=== PATIENT | male | born 1980 | race African-American/Black ===

== ENCOUNTER 2019-05-07 13:31 | Emergency (ER) | payer OTHER, SELFPAY ==
[2019-05-07 13:37] VITALS: BP 120/76; PULSE 63; RESP 19; TEMP 36.2; O2SAT 100
[2019-05-07] MEDS: DIAZEPAM 5 MG TABLET PO (14:08)
[2019-05-07] MEDS: KETOROLAC (*BKC) 60 MG/2 ML VIAL IM (14:08)
--- NOTE | 2019-05-07 14:35 | ED.BACK ---
HPI - Back Pain/Injury General Chief Complaint: Back Pain/Injury Stated Complaint: back pain Time Seen by Provider: 05/07/19 13:39 Source: patient Mode of arrival: ambulatory Limitations: no limitations History of Present Illness HPI Narrative: This is a 38 year old male that presents to the ER for low back pain x 2 days. No known injury or trauma. Reports sharp pain that is worse with movement and relieved with rest. He took an anti-inflammatory last night with little relief. Denies fever, abdominal pain, vomiting, dysuria, hematuria, saddle anesthesia, or bowel/bladder incontinence. Related Data Allergies Allergy/AdvReac Type Severity Reaction Status Date / Time Penicillins Allergy Rash Verified 05/07/19 14:07 Review of Systems Review of Systems: Narrative: CONSTITUTIONAL: Denies fever GASTROINTESTINAL: Denies abdominal pain, nausea, vomiting GENITOURINARY: Denies dysuria or hematuria. SKIN: Denies rash MUSCULOSKELETAL: Reports back pain, joint pain, and myalgia. NEUROLOGIC: Denies numbness, or weakness. All systems reviewed & are unremarkable except as noted in HPI and below PMFSH Social History Social History (Updated 05/07/19 @ 14:39 by Amna Angel PA-C) Smoking status: Current every day smoker Alcohol intake: never Substance use: never Gender identity (if verbalized by the patient): Male Exam Narrative: Exam Narrative: GENERAL: Well-appearing, well-nourished, and in no acute distress. HEAD: Normocephalic, atraumatic. EYES: EOMI. CHEST: Clear to auscultation. No respiratory distress. No wheezes rales or rhonchi HEART: Regular rate and rhythm. No murmur heard. Normal peripheral pulses. ABDOMEN: Soft, nontender, nondistended, normal active bowel sounds. BACK: No midline spinal tenderness EXTREMITIES: Normal range of motion. No edema. Strength equal in bilateral lower extremities (5/5). Normal patellar reflexes bilaterally SKIN: Warm, dry, no rash. NEURO: No focal deficits. Alert and oriented x3. Normal gait PSYCH: Normal mood and affect Course Vital Signs Vital signs: Vital Signs Temperature 97.2 F L 05/07/19 13:37 Pulse Rate 63 05/07/19 13:37 Respiratory Rate 19 05/07/19 13:37 Blood Pressure 120/76 03/13/20 13:37 Pulse Oximetry 100 03/13/20 13:37 Temperature 97.2 F L 05/07/19 13:37 Pulse Rate 63 05/07/19 13:37 Respiratory Rate 19 05/07/19 13:37 Blood Pressure 120/76 05/07/19 13:37 Pulse Oximetry 100 05/07/19 13:37 MDM - Back Pain/Injury MDM Narrative Medical decision making narrative: Patient presents to the ER for low back pain x2 days. Reports history of back problems for years. No recent injury or trauma. Patient is neurologically intact. He is afebrile and nontoxic-appearing. Patient given a dose of anti-inflammatory and muscle relaxer in the ED. He was instructed to rest, use ice/heat and take [id number] pain medications as well as muscle relaxer as needed for pain. He will be given follow-up with orthopedics and neurosurgery. Patient is stable and felt appropriate for further outpatient evaluation. He was given warnings to return to the ER Critical Care Time Critical Care Time Critical Care Time: No Discharge Plan Discharge Clinical Impression: Low back pain Qualifiers: Chronicity: chronic Back pain laterality: midline Sciatica presence: without sciatica Qualified Code(s): M54.5 - Low back pain Patient Disposition: Home, Self-Care Condition: Stable Instructions: Lumbar Radiculopathy (ED) Additional Instructions: Return to the ER if you experience fever, sudden onset weakness or numbness, numbness in your groin, bowel/bladder incontinence, or any other symptoms that are concerning to you Rest, use ice/heat, take anti-inflammatories (Aleve, Ibuprofen, Naproxen, etc) or Tylenol as needed for pain as well as muscle relaxer (Diazepam) as needed for pain. Muscle relaxers can make you drowsy, do not drive if you take this. Take
[2019-05-07 15:47] VITALS: BP 130/80; PULSE 80; RESP 18; TEMP 36.7; O2SAT 99
== END 2019-05-07 15:48 | disposition home or self-care (01) ==
PROVIDERS: Emergency Provider Emergency Medicine
DX: M54.5 Low back pain (principal); F17.200 Nicotine dependence, unspecified, uncomplicated
CPT/HCPCS: 96372; 99283; A9270; J1885

== ENCOUNTER 2019-10-15 16:24 | Emergency (ER) | payer OTHER, SELFPAY ==
[2019-10-15 16:32] VITALS: BP 119/78; PULSE 82; RESP 14; TEMP 36.5; O2SAT 100
--- NOTE | 2019-10-15 17:07 | ED.GENADULT ---
HPI - General Adult General Chief complaint: Dental/Oral Stated complaint: toothache/facial swelling Time Seen by Provider: 10/15/19 16:37 Source: patient Mode of arrival: ambulatory Limitations: no limitations History of Present Illness HPI narrative: Patient is a 39-year-old male who presents to emergency department for evaluation of tender swollen left upper decayed tooth with history of decay patient notes moderate aching pain worse with eating denies fever chills nausea vomiting has taken [id number] medications with minimal improvement does not have a dental follow-up Related Data Allergies Allergy/AdvReac Type Severity Reaction Status Date / Time Penicillins Allergy Rash Verified 10/15/19 16:34 Review of Systems Review of Systems: All systems reviewed & are unremarkable except as noted in HPI and below PMFSH Social History Social History Smoking status: Current every day smoker Alcohol intake: never Substance use: never Gender identity (if verbalized by the patient): Male Exam Narrative: Exam Narrative: GENERAL: Well-appearing, well-nourished, and in no acute distress. HEAD: Normocephalic, atraumatic. EYES: PERRLA and EOMI. ENT: Nares clear, no rhinorrhea or epistaxis. Mucous membranes moist. Oropharynx without tonsillar hypertrophy. Uvula midline no trismus or drooling. Decayed left upper incisor with slight erythema of the gum. Floor of the mouth is soft NECK: Supple. No adenopathy or masses. EXTREMITIES: Normal range of motion. No edema. SKIN: Warm, dry, no rash. NEURO: No focal deficits. Alert and oriented x3. Neurovascularly intact PSYCH: Normal mood and affect. Course Course Emergency Course: Patient in the room aware of case findings treatment plan and diagnosis agreeing to follow-up with primary care and dentistry Vital Signs Vital signs: Vital Signs Temperature 97.7 F 10/15/19 16:32 Pulse Rate 82 10/15/19 16:32 Respiratory Rate 14 10/15/19 16:32 Blood Pressure 119/78 10/15/19 16:32 Pulse Oximetry 100 10/15/19 16:32 Temperature 97.7 F 10/15/19 16:32 Pulse Rate 82 10/15/19 16:32 Respiratory Rate 14 10/15/19 16:32 Blood Pressure 119/78 10/15/19 16:32 Pulse Oximetry 100 10/15/19 16:32 Medical Decision Making MDM Narrative Medical decision making narrative: Paitents pain and complaint coupled with physical findings are consistant with dentalgia. There are no focal signs of space occupying lesions that are compromising to the ariway. The floor of the mouth is soft with no signs of Ludwigs Angina. Patient is without trismus or drooling and able to swallow secreations. Patient is felt appropriate for discharge home with dental follow up. Vital Signs Vital Signs: Vital Signs Temperature 97.7 F 10/15/19 16:32 Pulse Rate 82 10/15/19 16:32 Respiratory Rate 14 10/15/19 16:32 Blood Pressure 119/78 10/15/19 16:32 Pulse Oximetry 100 10/15/19 16:32 Temperature 97.7 F 10/15/19 16:32 Pulse Rate 82 10/15/19 16:32 Respiratory Rate 14 10/15/19 16:32 Blood Pressure 119/78 10/15/19 16:32 Pulse Oximetry 100 10/15/19 16:32 Discharge Plan Discharge Clinical Impression: Dental abscess Patient Disposition: Home, Self-Care Condition: Stable Instructions: Antibiotic Form, Dental Abscess (ED) Additional Instructions: Follow-up with dentistry in the next 7 to 10 days for reevaluation Return if symptoms worsen or concerns or any increase in redness swelling pain or fever over 100.5 or unable to swallow or open the mouth Follow patient education sheets Only take medications as directed Prescriptions: New chlorhexidine gluconate [Peridex] 0.12 % mouthwash 15 ml MUCOUS MEM BID Qty: 1500 RF: 0 ibuprofen [IBU] 600 mg tablet 600 mg PO QID PRN (Reason: fever or pain) Qty: 10 RF: 0 No Action diazepam [Valium] 5 mg tablet 5 mg PO BID PRN (Reaso
== END 2019-10-15 17:24 | disposition home or self-care (01) ==
PROVIDERS: Emergency Provider Emergency Medicine
DX: K04.7 Periapical abscess without sinus (principal); F17.200 Nicotine dependence, unspecified, uncomplicated
CPT/HCPCS: 99283